=== PATIENT | male | born 1985 | race Caucasian/White ===

== ENCOUNTER 2022-03-11 16:25 | Emergency (ER) | payer SELFPAY ==
--- NOTE | 2022-03-11 16:43 | PC.NURSE ---
pt ambulated to intake desk and states he would like to go home and change his clothes. pt made aware that we will not be able to hold his spot open for him if he leaves. pt verbalized understanding and walked out ED.
== END 2022-03-11 17:17 | disposition left against medical advice (07) ==
LOC: ANHED 16:55
PROVIDERS: PCP Family Medicine
DX: Z53.21 Procedure and treatment not carried out due to patient leaving prior to being seen by health care provider (principal)
CPT/HCPCS: 99199

== ENCOUNTER 2022-03-11 17:20 | Emergency (ER) | payer BC, SELFPAY ==
--- NOTE | ~2022-03-11 | US_ITS ---
EXAMINATION: US scrotum doppler DATE: 03/11/2022 18:12 INDICATION: Right testicular and pain swelling x72 hours, recent trauma. TECHNIQUE: Grayscale and Doppler ultrasound images of the testes were obtained. COMPARISON: None. FINDINGS: The right testis measures 5.6 x 2.7 x 3.2 cm. The left testis measures 4.9 x 2.1 x 2.3 cm. Mild generalized hypervascularity in the right testicle. No solid or cystic intratesticular masses. T he right epididymis is normal with normal vascular flow and contains a 9 mm cyst. The left epididymis is normal with normal vascular flow. Approximate 16 cc volume right hydrocele. No varicoceles. IMPRESSION: 1. No sonographic evidence of testicular rupture or hematoma. 2. Sonographic findings likely reflect generalized testicular edema from recent trauma, noting that o rchitis could appear similar. 3. Small right hydrocele/hematocele. Reviewed, dictated and finalized at location K. IMPRESSION: 1. No sonographic evidence of testicular rupture or hematoma. 2. Sonographic findings likely reflect generalized testicular edema from recent trauma, noting that orchitis could appear similar. 3. Small right hydrocele/hematocele.
[2022-03-11 17:24] VITALS: BP 163/74; PULSE 84; RESP 16; TEMP 36.2; O2SAT 99
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
== END 2022-03-11 19:07 | disposition home or self-care (01) ==
LOC: ANHED 18:58
PROVIDERS: Emergency Provider Emergency Medicine; PCP Family Medicine
DX: N43.3 Hydrocele, unspecified (principal); N50.811 Right testicular pain; I10 Essential (primary) hypertension; E78.5 Hyperlipidemia, unspecified
CPT/HCPCS: 76870; 93976; 99284

== ENCOUNTER 2024-10-16 08:02 | Emergency (ER) | payer BC, SELFPAY ==
[2024-10-16 08:08] VITALS: BP 188/111; PULSE 75; RESP 16; TEMP 36.4; O2SAT 100
--- OUTSIDE RECORDS SUMMARY | 2024-10-16 08:10 | XMS_ITS | Clinical Summary ---
Author Organization [facility] Address [address] [place] [id number] Care Team Providers Care Line Palletizer Name Role Phone Stuart Palomo MD Primary Care Provider [phone]- [phone] Allergies No known active allergies Medications hydroCHLOROthiaz shiraz (HYDRODIURIL) 25 mg tablet Take 25 mg by mouth daily. 3 02/13/2017 Active losartan (COZAAR) 100 mg tablet Take 100 mg by mouth daily. 5 02/11/2017 Active NIFEdipine XL (PROCARDIA XL) 90 mg 24 hr tablet Take 90 mg by mouth daily. 5 01/29/2017 Active POTASSIUM CHLORIDE ER 20 mEq CR tablet Take 20 mEq by mouth daily. 3 02/12/2017 Active nebivolol (BYSTOLIC) 10 mg tablet Take 1 tablet (10 mg total) by mouth daily. 90 tablet 3 04/01/2018 Active Active Problems Problem Noted Date Diagnosed Date Essential hypertension, benign 02/25/2017 Chest pressure 02/25/2017 Morbid obesity with BMI of 40.0-44.9, adult 02/07 SALVATORE (obstructive sleep apnea) 02/25/2017 Medical History Medical History Date Comments Hypertension Sleep apnea Family History Relation Name Status Comments Father Alive Mother Alive Social History Tobacco Use Types Packs/Day Years Used Date Smoking Tobacco: Never Smokeless Tobacco: Never Alcohol Use Standard Drinks/Week Comments Yes 0 (1 standard drink = 0.6 oz pur e alcohol) occassionally Personal Safety Answer Date Recorded Getting School Help Needed Not on file 10/23 Sex and Gender Information Value Date Recorded Sex Assigned at Not on file Legal Sex Male 8:44 AM CDT Gender Identity Not on file Sexual Orientation Not on file Obstetrics History Last Filed Vital Signs Vital Sign Reading Time Taken Comments Blood Pressure 130/80 05/18/2018 3:15 PM CDT Pulse 80 05/18/2018 3:15 PM CDT Temperature - - Respiratory Rate - - Oxygen Saturation 97% 01/11/2018 11:27 AM CDT Inhaled Oxygen Concentration - - Weight 142.9 kg (315 lb) 05/18/2018 3:15 PM CDT Height 185.4 cm (6' 1 ) 05/18/2018 3:15 PM CDT Body Mass Index 41.56 05/18/2018 3:15 PM CDT Plan of Treatment Not on file Insurance [employer] Care Teams Line Palletizer Relationship Specialty Start Date End Date Stuart Palomo MD [facility] [place] [address] PCP - General Family Medicine 02/25/17
--- OUTSIDE RECORDS SUMMARY | 2024-10-16 08:10 | XMS_ITS | Clinical Summary ---
Author Organization [facility] Address [address] [place] [id number] Care Team Providers Care Health Plan Specialist Name Role Phone Unavailable Primary Care Provider Unavailabl e Social History Tobacco Use Types Packs/Day Years Used Date Smoking Tobacco: Never Assessed Sex and Gender Information Value Date Recorded Sex Assigned at Not on file Legal Sex Male 5:36 PM CDT Gender Identity Not on file Sexual Orientation Not on file Last Filed Vital Signs Vital Sign Reading Time Taken Comments Blood Pressure 139/79 03/11/2017 7:17 AM CDT Pulse 60 03/11/2017 7:17 AM CDT Temperature - - Respiratory Rate - - Oxygen Saturation - - Inhaled Oxygen Concentration - - Weight 151.5 kg (334 lb) 03/11/2017 7:17 AM CDT Height 185.4 cm (6' 1 ) 03/11/2017 7:17 AM CDT Body Mass Index 44.07 03/11/2017 7:17 AM CDT Plan of Treatment Health Maintenance Due Date Last Done Comments Annual Physical 1990 Hepatitis C 2005 DTaP, Tdap and Td Vaccines ( 1 - Tdap) 2006 Hepatitis B Vaccines (1 of 3 - 19+ 3-dose series) 2006 COVID-19 Vaccine (2023-2 5 season) 2024 Influenza Adult (#1) 2024 HPV Vaccines Aged Out No longer eligi ble based on patient's age to complete this topic Meningococcal B Vaccine Aged Out No l onger eligible based on patient's age to complete this topic Meningococcal Vaccine Aged Out No jemima tom eligible based on patient's age to complete this topic Pneumococcal Vaccine: Pediat rics (0 to 5 Years) and At-Risk Patients (6 to 64 Years) Aged Out No longer eligible b ased on patient's age to complete this topic RSV Immunizations Under 20 Months Aged Out No longer eligible based on patient's age to complete this topic
--- OUTSIDE RECORDS SUMMARY | 2024-10-16 08:10 | XMS_ITS | Referral Summary ---
Author Organization [facility] Address [address] [place] [id number] Care Team Providers Care [employer] Lieutenant Name Role Phone Stuart Palomo MD Primary Care Provider +1- [phone] Allergies No known active allergies Medications hydroCHLOROthiaz [...] adult 02/07 SALVATORE (obstructive sleep apnea) 02/25/2017 Social History Tobacco Use Types Packs/Day Years [...] Plan of Treatment Not on file Insurance [facility] Care Teams [employer] Lieutenant Relationship Specialty Start Date End Date Stuart Palomo MD [address] [place] [address] [place] [address] PCP - General Family Medicine 02/25/17
--- OUTSIDE RECORDS SUMMARY | 2024-10-16 08:10 | XMS_ITS | Data Portability ---
Author Organization [place] [facility] [employer], Main Office Address [address] [place] [address] Assessment No assessment recorded. Plan of Treatment Reminders Order Date Submit Date Provider Last Modified By Organization Details Last Modified Time Details Appointments None recorded. Lab HbA1c (hemoglobin A1c), blood 2023 [employer] [facility], [address], [place], [address], 4 01:38:02 CMP, serum or plasma 2023 [employer] [facility], [address], [place], [address], 4 01:37:59 lipid panel, serum 2023 [employer] [facility], [address], [place], [address], 4 01:37:56 CBC w/ auto diff 2023 [employer] [facility], [address], [place], [address], 4 01:38:01 TSH + free T4, serum 2023 [employer] [facility], [address], [place], [address], 4 01:37:58 CK (creatine kinase), total, serum 2023 [employer] [facility], [address], [place], [address], 4 01:38:00 lipid panel, serum 2022 023 [email or web address] 2 [employer] [facility], [address], [place], [address], 3 16:41:37 CMP, serum or plasma 2022 023 [email or web address] 2 [employer] [facility], [address], [place], [address], 3 16:41:37 Referral None recorded. Procedures None recorded. Surgeries None recorded. Imaging None recorded. Medication Orders hydrochloro thiazide 25 mg tablet 2023 024 [facility]/Pharmacy #[id number], [address] [place], [address], 4 10:24:39 losartan 100 mg tablet 2023 024 [facility]/Pharmacy #3259, [address] [place], [address], 4 10:24:40 nifedipine ER 90 mg tablet,exte nded release 2023 024 [facility] [address] [place], [address], 4 10:24:41 chlorthalid one 25 mg tablet 2022 023 [email or web address]/Pharmacy #3259, [address] [place], [address], 4 10:03:05 Patient TargetsNo targets recorded. Patient Instructions Encounter Date Encounter Id Patient Instructions Last Modified By Organization Details Last Modified Time 06/29/2024 [id number] Advised avoiding spicy tomato-based foods , carbonated beverages ,drink water . If no better we can refer to GI. ...recheck BP here free in 7 days [email or web address] Not available 07/17/2024 09:24:45 Reason for Referral None Reported. Results Created Date Observation Date Name Description Value Unit Range Abnormal Flag Note LastModifiedBy Organization Detail LastModifiedTime 03/04/20 22 03/04/2022 LIPID PANEL cholesterol 178 mg/dL 140-19 9 [facility] EN[facility] NSUS RECOM MENDA TION FOR LINDSEY STERO L: ADULT CHILD LOW RISK: <200 <170 BORDE RLINE : <200- 239 ----- HIGH RISK: >240 >200 Not Available [facility] (Lab) [address] [place], [address], 03/04/2022 13:06:17 03/04/20 22 03/04/2022 LIPID PANEL triglyceride s 181 mg/dL 0-150 high NIH ENEDINA NSUS REPOR T RECOM MENDA TION FOR TRIGL YCERI AFSHIN: ADULT CHILD LOW RISK: <150 ----- BODER LINE: 150-1 99 ----- HIGH RISK: >200 ----- Not Available [facility] (Lab) [address] [place], [address], 03/04/2022 13:06:17 03/04/20 22 03/04/2022 LIPID PANEL HDL cholesterol 52 mg/dL 40- Not Available [facility] (Lab) [address] [place], [address], 03/04/2022 13:06:17 03/04/20 22 03/04/2022 LIPID PANEL LDL cholesterol, calculated 90 mg/dL 0-130 [facility] ENEDINA NSUS REPOR T RECOM MENDA TIONS FOR LDL: ADULT CHILD LOW RISK <130 <110 (OPTI MAL LDL) <100 ----- BORDE RLINE : 130-1 59 ----- HIGH RISK: >160 >130 A TRIGL YCERI DE RESUL T >400 INVAL IDATE S THE CALCU LATIO N FOR LDL FRACT IONAT ION - THE LDL RESUL T WILL NOT BE REPOR GABO. Not Available [facility] (Lab) [address] [facility], [address], 03/04/2022 13:06:17 03/04/20 22 03/04/2022 COMPR EHENS PAGE METAB OLIC PANEL glucose 89 mg/dL 70-99 Not Available [facility] (Lab) [address] [place], [address], 03/04/2022 13:05:16 03/04/20 22 03/04/2022 COMPR EHENS PAGE METAB OLIC PANEL sodium 137 mmol/ L 137-14 5 Not Available [facility] (Lab) [address] [place], [address], 03/04/2022 13:05:16 03/04/20 22 03/04/2022 COMPR EHENS PAGE METAB OLIC PANEL potassium 3.9 mmol/ L 3.5-5. 1 Not Available [facility] (Lab) [address] [place], [address], 03/04/2022 13:05:16 03/04/20 22 03/04/2022 COMPR EHENS PAGE METAB OLIC PANEL chloride 100 mmol/ L 98-107 Not Available [facility] (Lab) [address] [place], [address], 03/04/2022 13:05:16 03/04/20 22 03/04/2022 COMPR EHENS PAGE METAB OLIC PANEL carbon dioxide 28 mmol/ L 22-30 Not Available [facility] (Lab) [address] [place], [address], 03/04/2022 13:05:16 03/04/20 22 03/04/2022 COMPR EHENS PAGE METAB OLIC PANEL anion gap 12.9 mmol/ L 14-22 low Not Available [facility] (Lab) [address] [place], [address], 03/04/2022 13:05:16 03/04/20 22 03/04/2022 COMPR EHENS PAGE METAB OLIC PANEL BUN 14 mg/dL 8-19 Not Available [facility] (Lab) [address] [place], [address], 03/04/2022 13:05:16 03/04/20 22 03/04/2022 COMPR EHENS PAGE METAB OLIC PANEL creatinine 0.75 mg/dL 0.66-1 .25 Not Available [facility] (Lab) [address] [place], [address], 03/04/2022 13:05:16 03/04/20 22 03/04/2022 COMPR EHENS PAGE METAB OLIC PANEL GFR >60 Refer ence Range : Sawyer ge GFR Healt hy Adult : >60 mL/mi n/1.7 3 m2 Chron ic Kidne y Disea se: 15-60 mL/mi n/1.7 3 m2 Kidne y Failu re: <15/m L/min /1.73 m2 www.n iddk. nih.g ov The MDRD study equat ion has not been valid ated in child zac <18 years of age; pregn ant women ; the elder ly >85 years of age; or in some racia l or ethni c subgr oups, such as nm nics. Outsi de the valid ated reed eters , estim ated GFR is less accur ate, requi ring clini luciana judgm ent on a case- by-ca se basis . Clini luciana inter preta tion for other races and ages must be made by the clini frandy. The MDRD study equat ion has not been valid ated for the evalu ation of serum creat inine relat ed to nutri karen l statu s or medic ation usage . For perso ns <18 years of age, a pedia tric GFR calcu lator is avail able on the F websi te: https ://alejandro w.rosy leavitt.o rg/pr ofess ional s/kdo qi/gf r_cal culat or Not Available [facility] (Lab) [address] [place], [address], 03/04/2022 13:05:16 03/04/20 22 03/04/2022 COMPR EHENS PAGE METAB OLIC PANEL alkaline phosphatase 73 U/L 38-126 Not Available [facility] (Lab) [address], [address], 03/04/2022 13:05:16 03/04/20 22 03/04/2022 COMPR EHENS PAGE METAB OLIC PANEL alanine aminotransfe rase 61 U/L 0-50 high Not Available [facility] (Lab) [address] [place], [address], 03/04/2022 13:05:16 03/04/20 22 03/04/2022 COMPR EHENS PAGE METAB OLIC PANEL aspartate aminotransfe rase 40 U/L 15-46 Not Available [facility] (Lab) [address] [place], [address], 03/04/2022 13:05:16 03/04/20 22 03/04/2022 COMPR EHENS PAGE METAB OLIC PANEL bilirubin, total 0.40 mg/dL 0.20-1 .30 Not Available [facility] (Lab) [address] [place], [address], 03/04/2022 13:05:16 03/04/20 22 03/04/2022 COMPR EHENS PAGE METAB OLIC PANEL calcium 9.7 mg/dL 8.4-10 .2 Not Available [facility] (Lab) [address] [place], [address], 03/04/2022 13:05:16 03/04/20 22 03/04/2022 COMPR EHENS PAGE METAB OLIC PANEL total protein 7.3 g/dL 6.3-8. 2 Not Available [facility] (Lab) [address] [place], [address], 03/04/2022 13:05:16 03/04/20 22 03/04/2022 COMPR EHENS PAGE METAB OLIC PANEL albumin 4.5 g/dL 3.4-5. 0 Not Available [facility] (Lab) [address] [place], [address], 03/04/2022 13:05:16 03/04/20 22 03/04/2022 COMPR EHENS PAGE METAB OLIC PANEL globulin 2.8 g/dL 2.6-4. 2 Not Available [facility] (Lab) [address] [place], [address], 03/04/2022 13:05:16 03/04/20 22 03/04/2022 COMPR EHENS PAGE METAB OLIC PANEL A/G ratio 1.6 ratio 1.0-2. 0 Not Available [facility] (Lab) [address] [place], [address], 03/04/2022 13:05:16 06/29/20 24 06/30/2024 LIPID PANEL , STAND EMILIA cholesterol, total 180 mg/dL <200 normal Not Available [employer] [address] [address] [place], [address], 06/30/2024 01:37:53 06/29/20 24 06/30/2024 LIPID PANEL , STAND EMILIA HDL cholesterol 52 mg/dL > or = 40 normal Not Available [employer] [address] [address] [place], [address], 06/30/2024 01:37:53 06/29/20 24 06/30/2024 LIPID PANEL , STAND EMILIA triglyceride s 141 mg/dL <150 normal Not Available [employer] [address] [address] [place], [address], 06/30/2024 01:37:53 06/29/20 24 06/30/2024 LIPID PANEL , STAND EMILIA LDL-choleste rol 104 mg/dL _(luciana c) high Refer ence range : <100 Anastacio able range <100 mg/dL for prima ry preve ntion ; <70 mg/dL for patie nts with CHD or diabe tic patie nts with > or = 2 CHD risk facto rs. LDL-C is now calcu lated using the [facility] kins salbador yañez n, which is a valid ated novel metho d provi edgardo barb r accur acy than the Fried clarice equat ion in the estim ation of LDL-C . Amber valverde SS et al. AUBRIE. 2013; 310(1 9): 2061- 206 (http ://ed ucati on.Qu estDi DermaMedicss. com/f aq/FA Q164) Not Available [employer] [address] [place], [address], 06/30/2024 01:37:53 06/29/20 24 06/30/2024 LIPID PANEL , STAND EMILIA chol/HDLC ratio 3.5 (calc ) <5.0 normal Not Available [employer] [address] [place], [address], 06/30/2024 01:37:53 06/29/20 24 06/30/2024 LIPID PANEL , STAND EMILIA non HDL cholesterol 128 mg/dL _(luciana c) <130 normal For patie nts with diabe yahaira plus 1 major ASCVD risk facto r, treat ing to a non-H DL-C goal of <100 mg/dL (LDL- C of <70 mg/dL ) is consi ryand a thera christine c optio n. Not Available [facility] [address] [address] [facility] [place], [address], 06/30/2024 01:37:53 06/29/20 24 06/30/2024 TSH+F REE T4 TSH 0.79 mIU/L 0.40-4 .50 normal Not Available [employer] [address] [address] [place], [address], 06/30/2024 01:37:57 06/29/20 24 06/30/2024 TSH+F REE T4 T4, free 1.2 NG/dL 0.8-1. 8 normal Not Available [address], [address], 06/30/2024 01:37:57 06/29/20 24 06/30/2024 COMPR EHENS PAGE METAB OLIC PANEL glucose 84 mg/dL 65-99 normal Fasti ng refer ence inter navid Not Available [address], [address], 06/30/2024 01:37:58 06/29/20 24 06/30/2024 COMPR EHENS PAGE METAB OLIC PANEL urea nitrogen (BUN) 13 mg/dL 7-25 normal Not Available [address], [address], 06/30/2024 01:37:58 06/29/20 24 06/30/2024 COMPR EHENS PAGE METAB OLIC PANEL creatinine 0.74 mg/dL 0.60-1 .26 normal Not Available [address], [address], 06/30/2024 01:37:58 06/29/20 24 06/30/2024 COMPR EHENS PAGE METAB OLIC PANEL eGFR 120 mL/mi n/1.7 3m2 > or = 60 normal Not Available [address], [address], 06/30/2024 01:37:58 06/29/20 24 06/30/2024 COMPR EHENS PAGE METAB OLIC PANEL BUN/creatini ne ratio SEE NOTE: (calc ) 6-22 Not Repor gabo: BUN and Creat inine are withi n refer ence range . Not Available [address], [address], 06/30/2024 01:37:58 06/29/20 24 06/30/2024 COMPR EHENS PAGE METAB OLIC PANEL sodium 137 mmol/ L 135-14 6 normal Not Available [address], [address], 06/30/2024 01:37:58 06/29/20 24 06/30/2024 COMPR EHENS PAGE METAB OLIC PANEL potassium 4.1 mmol/ L 3.5-5. 3 normal Not Available [address], [address], 06/30/2024 01:37:58 06/29/20 24 06/30/2024 COMPR EHENS PAGE METAB OLIC PANEL chloride 100 mmol/ L 98-110 normal Not Available [address], [address], 06/30/2024 01:37:58 06/29/20 24 06/30/2024 COMPR EHENS PAGE METAB OLIC PANEL carbon dioxide 31 mmol/ L 20-32 normal Not Available [address], [address], 06/30/2024 01:37:58 06/29/20 24 06/30/2024 COMPR EHENS PAGE METAB OLIC PANEL calcium 9.8 mg/dL 8.6-10 .3 normal Not Available [address], [address], 06/30/2024 01:37:58 06/29/20 24 06/30/2024 COMPR EHENS PAGE METAB OLIC PANEL protein, total 7.7 g/dL 6.1-8. 1 normal Not Available [address], [address], 06/30/2024 01:37:58 06/29/20 24 06/30/2024 COMPR EHENS PAGE METAB OLIC PANEL albumin 4.8 g/dL 3.6-5. 1 normal Not Available [address], [address], 06/30/2024 01:37:58 06/29/20 24 06/30/2024 COMPR EHENS PAGE METAB OLIC PANEL globulin 2.9 g/dL_ (calc ) 1.9-3. 7 normal Not Available [address], [address], 06/30/2024 01:37:58 06/29/20 24 06/30/2024 COMPR EHENS PAGE METAB OLIC PANEL albumin/glob ulin ratio 1.7 (calc ) 1.0-2. 5 normal Not Available [address], [address], 06/30/2024 01:37:58 06/29/20 24 06/30/2024 COMPR EHENS PAGE METAB OLIC PANEL bilirubin, total 0.8 mg/dL 0.2-1. 2 normal Not Available [address], [address], 06/30/2024 01:37:58 06/29/20 24 06/30/2024 COMPR EHENS PAGE METAB OLIC PANEL alkaline phosphatase 86 U/L 36-130 normal Not Available [address], [address], 06/30/2024 01:37:58 06/29/20 24 06/30/2024 COMPR EHENS PAGE METAB OLIC PANEL AST 24 U/L 10-40 normal Not Available [address], [address], 06/30/2024 01:37:58 06/29/20 24 06/30/2024 COMPR EHENS PAGE METAB OLIC PANEL ALT 32 U/L 9-46 normal Not Available [address], [address], 06/30/2024 01:37:58 06/29/20 24 06/30/2024 CREAT INE KINAS E, TOTAL creatine kinase, total 350 U/L 44-196 high Not Available [address], [address], 06/30/2024 01:38:00 06/29/20 24 06/30/2024 CBC (INCL UDES DIFF/ PLT) white blood cell count 9.0 thous and/u L 3.8-10 .8 normal Not Available [address], [address], 06/30/2024 01:38:01 06/29/20 24 06/30/2024 CBC (INCL UDES DIFF/ PLT) red blood cell count 5.41 soo on/uL 4.20-5 .80 normal Not Available [address], [address], 06/30/2024 01:38:01 06/29/20 24 06/30/2024 CBC (INCL UDES DIFF/ PLT) hemoglobin 15.8 g/dL 13.2-1 7.1 normal Not Available [address], [address], 06/30/2024 01:38:01 06/29/20 24 06/30/2024 CBC (INCL UDES DIFF/ PLT) hematocrit 48.0 % 38.5-5 0.0 normal Not Available [address], [address], 06/30/2024 01:38:01 06/29/20 24 06/30/2024 CBC (INCL UDES DIFF/ PLT) MCV 88.7 fL 80.0-1 00.0 normal Not Available [address], [address], 06/30/2024 01:38:01 06/29/20 24 06/30/2024 CBC (INCL UDES DIFF/ PLT) MCH 29.2 pg 27.0-3 3.0 normal Not Available [address], [address], 06/30/2024 01:38:01 06/29/20 24 06/30/2024 CBC (INCL UDES DIFF/ PLT) MCHC 32.9 g/dL 32.0-3 6.0 normal For adult s, a sligh t decre ase in the calcu lated MCHC value (in the range of 30 to 32 g/dL) is most likel y not clini turner signi ficdebby t; nataliiaev er, it shoul d be inter prete d with cauti on in corre latio n with other red cell reed eters and the patie nt's clini luciana condi tion. Not Available [address], [address], 06/30/2024 01:38:01 06/29/2006/30/2024 CBC (INCL UDES DIFF/ PLT) RDW 12.6 % 11.0-1 5.0 normal Not Available [address], [address], 06/30/2024 01:38:01 06/29/20 24 06/30/2024 CBC (INCL UDES DIFF/ PLT) platelet count 282 thous and/u L 140-40 0 normal Not Available [address], [address], 06/30/2024 01:38:01 06/29/20 24 06/30/2024 CBC (INCL UDES DIFF/ PLT) MPV 9.8 fL 7.5-12 .5 normal Not Available [address], [address], 06/30/2024 01:38:01 06/29/20 24 06/30/2024 CBC (INCL UDES DIFF/ PLT) absolute neutrophils 5157 cells /uL 1500-7 800 normal Not Available [address], [address], 06/30/2024 01:38:01 06/29/20 24 06/30/2024 CBC (INCL UDES DIFF/ PLT) absolute lymphocytes 2934 cells /uL 850-39 00 normal Not Available [address], [address], 06/30/2024 01:38:01 06/29/20 24 06/30/2024 CBC (INCL UDES DIFF/ PLT) absolute monocytes 684 cells /uL 200-95 0 normal Not Available [address], [address], 06/30/2024 01:38:01 06/29/20 24 06/30/2024 CBC (INCL UDES DIFF/ PLT) absolute eosinophils 162 cells /uL 15-500 normal Not Available [address], [address], 06/30/2024 01:38:01 06/29/20 24 06/30/2024 CBC (INCL UDES DIFF/ PLT) absolute basophils 63 cells /uL 0-200 normal Not Available [address], [address], 06/30/2024 01:38:01 06/29/20 24 06/30/2024 CBC (INCL UDES DIFF/ PLT) neutrophils 57.3 % normal Not Available [address], [address], 06/30/2024 01:38:01 06/29/20 24 06/30/2024 CBC (INCL UDES DIFF/ PLT) lymphocytes 32.6 % normal Not Available [address], [address], 06/30/2024 01:38:01 06/29/20 24 06/30/2024 CBC (INCL UDES DIFF/ PLT) monocytes 7.6 % normal Not Available [address], [address], 06/30/2024 01:38:01 06/29/20 24 06/30/2024 CBC (INCL UDES DIFF/ PLT) eosinophils 1.8 % normal Not Available [facility] [address] [place], [address], 06/30/2024 01:38:01 06/29/20 24 06/30/2024 CBC (INCL UDES DIFF/ PLT) basophils 0.7 % normal Not Available [facility] [address] [address], [place], [address], 06/30/2024 01:38:01 06/29/20 24 06/30/2024 HEMOG LOBIN A1C hemoglobin A1C 5.4 %_of_ total _HGB <5.7 normal For the purpo se of screjamel goinsg for the prese nce of diabe yahaira: <5.7% Consi stent with the absen ce of diabe yahaira 5.7-6 .4% Consi stent with incre ased risk for diabe yahaira (pred iabet es) > or =6.5% Consi stent with diabe yahaira This assay resul t is consi stent with a decre ased risk of diabe yahaira. Curre ntly, no conse nsus exist s navin reynoso use of hemog lobin A1c for diagn osis of diabe yahaira in child zac. Accor ding to Ameri can Diabe yahaira Assoc iatio n (ADA) guide lines , hemog lobin A1c <7.0% repre sents optim al contr ol in non-p regna nt diabe tic patie nts. Diffe rent metri cs may apply to speci fic patie nt popul ation s. Stand ards of Medic al Care in Diabe yahaira(A DA). Not Available [facility] [address] [address], [place], [address], 06/30/2024 01:38:02 03/11/20 22 03/11/2022 imagi ng/di agnos tic resul t No observ ation record ed. [id number] [address] [address], [place], [address], 10/07/2022 01:02:24 Result Notes None recorded. Problems Name Problem SNOMED Code Status Onset Date Resolution Date Notes Provider Name and Address Organization Details Recorded Time Dizziness 689811978 Active Not Available [facility] 3 00:53:23 Obesity 765946618 Active Not Available [facility] 3 00:53:23 Essential hypertension 79612864 Active Not Available [facility] 3 00:53:23 Hypersomnia 18595270 Active Not Available [facility] 3 00:53:23 Obstructive sleep apnea syndrome 68100575 Active Not Available [facility] 3 00:53:24 Testicular mass 35874193 Active Not Available [facility] 3 00:53:24 Hyperlipidemi a 87644719 Active 2022 Stuart Palomo MD [address] [facility], [address] [address], [place], [address] , [facility] [employer] 3 19:35:15 Gout 91676776 Active 2022 Stuart Palomo MD [address] [facility], [address], [place], [address] , [facility] [employer] 3 21:24:48 Problem Notes None recorded. Procedures Surgical History None recorded. Imaging Results Imaging Date Name Status LastModified by Organiz ation Details LastModified Time 03/11/2022 imaging/gustabo gnostic result completed [id number] [address] [place] [address] [address], [place], [address], 10/07/2022 01:02:24 Procedure Notes None recorded. Medical Equipment None Reported. Allergies No known drug allergies Medications Name Sig Start Date Stop Date Status Note LastModified by Organization Details LastModified Time neomycin-po lymyxin-hyd rocort 3.5 mg/mL-10,00 0 unit/mL-1 % ear solution INSTILL 4 GTS IN AFFECTED EAR BID FOR 20 DAYS 10/15 completed Not Available Not Available Not Available atorvastati n 20 mg tablet TAKE 1 TABLET BY MOUTH EVERY DAY active Not Available Not Available No t Available azithromyci n 250 mg tablet FPD 03/30 completed Not Available Not Available Not Available nifedipine ER 90 mg tablet,exte nded release Take 1 tablet every day by oral route for 90 days. 2023 active Not Available Not Available Not Avai lable chlorthalid one 25 mg tablet TAKE 1 TABLET BY MOUTH EVERY DAY DIRECTED 06/29 completed Not Available Not Available Not Available oxycodone-a cetaminophe n 5 mg-325 mg tablet TK 1 T PO TID PRN P 08/31 completed Not Available Not Available Not Available doxycycline monohydrate 50 mg capsule active Not Available Not Available Not Available amoxicillin 875 mg tablet 08/31 completed Not Available Not Available Not Available prednisolon e acetate 1 % eye drops,suspe nsion INT 1 DROP QID OU 08/31 completed Not Available Not Available Not Available nifedipine ER 60 mg tablet,exte nded release 24 hr Take 1 tablet every day by oral route. 10/06 completed Not Available Not Available Not Available nifedipine ER 90 mg tablet,exte nded release 24 hr TAKE 1 TABLET BY MOUTH DAILY 06/29 completed Not Available Not Available Not Available hydrochloro thiazide 25 mg tablet Take 1 tablet every day by oral route. active Not Available Not Available No t Available nifedipine ER 60 mg tablet,exte nded release TAKE 1 TABLET BY MOUTH EVERY DAY 08/31 completed Not Available Not Available Not Available losartan 100 mg tablet TAKE 1 TABLET BY MOUTH EVERY DAY 2023 active Not Available Not Available Not Avai lable diazepam 5 mg tablet BRING TO [facility] ON SURGERYDA Y 08/31 completed Not Available Not Available Not Available amoxicillin 875 mg-potassiu m clavulanate 125 mg tablet 07/25 completed Not Available Not Available Not Available Klor-Con M20 mEq tablet,exte nded release TAKE 1 TABLET BY MOUTH EVERY DAY active Not Available Not Available No t Available Boostrix Tdap 2.5 Lf unit-8 mcg-5 Lf/0.5 mL intramuscul ar syringe ADM 0.5ML IM UTD 08/31 completed Not Available Not Available Not Available potassium chloride 25meq 1 po daily 07/25 completed Not Available Not Available Not Available Bystolic 5 mg tablet 07/25 completed Not Available Not Available Not Available nebivolol 10 mg tablet TAKE 1 TABLET BY MOUTH EVERY DAY 03/04 completed Not Available Not Available Not Available benzoyl peroxide 5.3 % topical foam active Not Available Not Available Not Available gatifloxaci n 0.5 % eye drops INT 1 DROP QID OU 08/31 completed Not Available Not Available Not Available Edarbyclor 40 mg-25 mg tablet active Not Available Not Available Not Available Fluvirin 45 mcg (15 mcg x 3)/0.5 mL intramuscul ar suspension ADM 0.5ML IM UTD 08/31 completed Not Available Not Available Not Available Fluzone Quad (PF) 60 mcg(15 mcgx4)/0.5 mL intramuscul ar syringe active Not Available Not Available N ot Available Afluria Qd (36 mos up)(PF)60 mcg (15 mcg x4)/0.5 mL IM syringe ADM 0.5ML IM UTD active Not Available Not Available No t Available ID NOW COVID-19 Test Kit TEST DIRECTED TODAY 03/04 completed Not Available Not Available Not Available Vitals Date Recorded Body mass index (BMI) Body height Oxygen saturation Oxygen saturation in Arterial blood by Pulse oximetry Heart rate Body temperature Body weight Systolic blood pressure Diastolic blood pressure Provider Name and Address Organization Details Last Updated DateTime 1 37.7 kg/m2 185.42 cm 99 % 99 % 68 /min 97 [degF] 454687. 42 g 150 mm[Hg] 100 mm[Hg] Not Available [facility] 3 00:49:25 Date Recorded Body mass index (BMI) Body height Oxygen saturation Oxygen saturation in Arterial blood by Pulse oximetry Heart rate Body temperature Body weight Systolic blood pressure Diastolic blood pressure Provider Name and Address Organization Details Last Updated DateTime 2 41.4 kg/m2 185.42 cm 98 % 98 % 77 /min 97.3 [degF] 088418 g 160 mm[Hg] 100 mm[Hg] Not Available [facility] 3 00:49:25 Date Recorded Body weight Body mass index (BMI) Body height Body temperature Heart rate Oxygen saturation Oxygen saturation in Arterial blood by Pulse oximetry Systolic blood pressure Diastolic blood pressure Provider Name and Address Organization Details Last Updated DateTime 3 778873. 63 g 40.9 kg/m2 185.42 cm 98.2 [degF] 62 /min 98 % 98 % 128 mm[Hg] 76 mm[Hg] Nara pretty CMA [place] - [facility] 3 10:21:32 Date Recorded Body height Body mass index (BMI) Body weight Body temperature Heart rate Oxygen saturation Oxygen saturation in Arterial blood by Pulse oximetry Systolic blood pressure Diastolic blood pressure Provider Name and Address Organization Details Last Updated DateTime 4 185.42 cm 45.1 kg/m2 416536. 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 Mental Status None recorded. Family History Relationship Description Onset Age of this Age Resolved Age Notes LastModified by Organization Details LastModified Time Father Hypertensive disorder [id number] Not available 10/07/2022 00:46:54 Mother Diabetes mellitus [id number] Not available 10/07/2022 00:46:54 Medical History No medical history recorded. Past Encounters Encounter ID Performer Location Encounter Start Date Encounter Closed Date Diagnosis/Indication Diagnosis SNOMED-CT Code Diagnosis ICD10 Code Diagnosis Note [id number] [facility] [address] [place] [address] 10/08/2020 00:00:00 10/08/2020 09:35:14 [id number] [facility] [place] [address] [place] [address] 03/04/2022 00:00:00 03/04/2022 09:57:49 [id number] Stuart Palomo MD [facility] [place] [address] [place] [address] 04/20/2023 09:57:37 04/20/2023 10:44:28 Adult health examination 900842402 Z00.00 Essential hypertension 96855309 I10 BP 138/78 continue same meds. Will stop HCTZ and change to chlorthali done as the HCTZ may cause gout flare uos. Hyperlipidemia 46687868 E78.5 Gout 09569349 M10.9 Will d/c HTCZ as this may lead to gout. Pt reports it is getting better not as painful taking ibuprofen prn which helps [id number] ONELIA Howard [facility] [place] [address] [facility] [place] [address] 06/29/2024 09:53:21 06/29/2024 10:29:29 Essential hypertension 93623190 I10 Hyperlipidemia 62892299 E78.5 Obesity 529402484 E66.9 Obstructiv e sleep apnea syndrome 92666600 G47.33 Health Concerns Section Related Observation LastModified by Organization Detai ls LastModified Time None Recorded Concern Status LastModified by Organization Details LastModified Time None Recorded Advance Directives Directive None Recorded Payers Encounter Date Sequence Insurance Name Policy Number Policy Talbot Covered Member ID Talbot Member ID Guarantor Name 04/20/2023 1 [employer] (EPO) [id number] Anastacio Davis [id number] Anastacio Davis 06/29/2024 1 [place] [id number] Anastacio Davis [id number] Anastacio Davis Notes Date Note Type Note Provider Name and Address Organization Details Recorded Time 04/20/2023 text/html Here today for annual physical. Has switched jobs. Is working remotely. His BP is good. Working on diet. Doing well. BP away from here are running 140s/80s. Usually 128-135/70-80s Is needing BW.Has a gout flare up is on HCTZ. It is getting better but has a swollen red right great toe. Stuart Palomo MD [address], [place], [address], [facility] 04/20/2023 21:31:05 06/29/2024 text/html intermittent abd pain , no constipation , diarrhea , unrelated to food , for 1 month . mid abdomen ONELIA Howard [address], [place], [address], [facility] 07/17/2024 09:25:46
--- NOTE | 2024-10-16 08:26 | ED_ITS ---
HPI - Abdominal Pain General Chief Complaint: Abdominal Pain Stated Complaint: abd pain Time Seen by Provider: 10/16/24 08:20 History of Present Illness HPI narrative: Pt presents with intermittent abdominal for two months. Pain is in RUQ and lasts 2 seconds and resolves on own. Pt has no pain now. Related Data Allergies Allergy/AdvReac Type Severity Reaction Status Date / Time No Known Allergies Allergy Verified 10/16/24 08:18 Review of Systems 2 Review of Systems: All systems reviewed & are unremarkable except as noted in HPI and below PMFSH Past Medical History Medical History (Updated 10/16/24 @ 09:12 by Bud Bain III, DO) History of hyperlipidemia History of hypertension Social History Social History (Updated 03/11/22 @ 18:39 by Marilee Randall PA-C) Smoking status: Never smoker Exam 2 Const: General: healthy appearing and no acute distress Nutritional Appearance: well nourished Orientation/consciousness: patient oriented x3 Limitations: no limitations Chest: Chest palpation & inspection: normal inspection of the chest Resp: Effort & Inspection: normal respiratory effort Auscultation: clear to auscultation bilaterally Cardio: Rate: regular rate Rhythm: regular rhythm GI: GI Palp: Yes Soft to palpation and No Tenderness to palpation present (GI) Auscultation: normal bowel sounds Back/Spine/Pelvis: Back: no CVA tenderness Skin: General skin exam: normal color Rashes: no rashes Wounds: no wounds Neuro: General: patient oriented x3, moves all extremities, no meningeal signs, no focal motor deficits and CN's II-XI intact bilaterally Speech: n ormal speech Extrem: General: normal to inspection and no clubbing, cyanosis or edema Psych: Mental Status: mental status grossly normal Affect: normal affect Attitude: cooperative Course Vital Signs Vital signs: Vital Signs Temperature 97.5 F L 10/16/24 08:08 Pulse Rate 75 10/16/24 08:08 Respiratory Rate 16 10/16/24 08:08 Blood Pressure 188/111 H 10/16/24 08:08 Pulse Oximetry 100 10/16/24 08:08 Oxygen Delivery Room Air 10/16/24 08:08 Temperature 97.5 F L 10/16/24 08:08 Pulse Rate 61 10/16/24 09:31 Respiratory Rate 18 10/16/24 09:31 Blood Pressure 196/112 H 10/16/24 09:31 Pulse Oximetry 99 10/16/24 09:31 Oxygen Delivery Room Air 10/16/24 08:08 MDM - Abdominal Pain MDM Narrative Medical decision making narrative: pain does not seem surgical given short duration of 2 seconds. Pt would feel better if we got some labs so will check some labs and UA to check GB and pancreas and rule out other issues. labs all neg. home on otc gas ex and/or nsaids Lab Data 10/16/24 08:21 10/16/24 08:21 Labs: Lab Results 10/16/24 Range/Units 08:21 WBC 8.5 (4.5-10.0) K/mm3 RBC 5.20 (4.6-6.20) M/mm3 Hgb 15.1 (14.0-18.0) g/dL Hct 45.6 (42.0-52.0) % MCV 87.7 (80-100) fl MCH 29.0 (26-34) pg MCHC 33.1 (32-36) g/dl RDW 12.5 (11.5-14.5) % Plt Count 289 (150-375) k/mm3 MPV 9.2 (7.4-10.4) fl Immature Gran % (Auto) 0.7 H (0-0.5) % Neut % (Auto) 61.7 (45.5-73.1) % Lymph % (Auto) 25.4 (18.3-44.2) % Cache % (Auto) 8.0 (2.6-8.5) % Eos % (Auto) 3.4 (0-4.4) % Baso % (Auto) 0.8 (0.2-1.2) % Lymph # (Auto) 2.17 (0.9-3.2) K/mm3 Cache # (Auto) 0.7 H (0.1-0.6) K/mm3 Eos # (Auto) 0.3 (0-0.3) K/mm3 Baso # (Auto) 0.1 (0.0-0.1) K/mm3 Abs Immat Gran (auto) 0.06 H (0.00-0.031) K/mm3 Absolute Neuts (auto) 5.3 (1.3-6.7) K/mm3 Absolute Nucleated RBC 0.000 (0.0-0.012) K/mm3 Nucleated RBC % 0.0 (0.0-0.2) % Sodium 139 (137-145) mmol/L Potassium 4.0 (3.4-5.0) mmol/L Chloride 105 (98-107) mmol/L Carbon Dioxide 26 (22-30) mmol/L Anion Gap 8 (4-12) mmol/L BUN 11 (9-20) mg/dL Creatinine 0.78 (0.7-1.3) mg/dL Estim Creat Clear Calc 175 ml/min Estimated GFR > 60 (59 - ) Glucose 102 (65-110) mg/dL Calcium 9.7 (8.4-10.2) mg/dL Total Bilirubin 0.7 (0.2-1.3) mg/dL AST 36 (17-59) U/L ALT 53 H (6-50) U/L Alkaline Phosphatase 85 (38-126) U/L Total Protein 8.0 (6.3-8.2) g/dL Albumin 4.8 (3.5-5.1) g/dL Lipase 106 (23-300) U/L Urine Color Yellow (Yellow) Urine Appearance Clear (Clear) Urine pH 6.5 (5.0-9.0) Ur Specific [place] 1.017 (1.001-1.035) Urine Protein Negative (Negative) mg/dL Urine Glucose (UA) Negative (Negative) mg/dL Urine Ketones Negative (Negative) mg/dL Ur Blood (Man) Negative (Negative) Urine Nitrate Negative (Negative) Urine Bilirubin Negative (Negative) Urine Urobilinogen 0.2 (<2.0) mg/dL Leukocyte Esterase Rfl Negative (Negative) SUSAN/UL Discharge Plan Discharge Clinical Impression: Abdominal pain Patient Disposition: Home, Self-Care Condition: Stable Instructions: Antibiotic Form, Abdominal Pain (ED) Additional Instructions: can try some gas ex or motrin. follow up with PC for BP check. Patient Language: Zambian Follow-up/Referrals: Dewey,Stuart Campos MD [Non-Staff] -
[2024-10-16 08:37] LABS: Add Urine Microscopic? NO; Appearance Urine Clear (Clear); Basophils Absolute Auto 0.1 K/mm3 (0.0-0.1); Basophils Percent Auto 0.8 % (0.2-1.2); Bilirubin Urine Negative (Negative); Blood Urine Negative (Negative); Color Urine Yellow (Yellow); Eosinophils Absolute Auto 0.3 K/mm3 (0-0.3); Eosinophils Percent Auto 3.4 % (0-4.4); Glucose Urine UA Negative (Negative); Hematocrit 45.6 % (42.0-52.0); Hemoglobin 15.1 g/dL (14.0-18.0); Immature Granulocyte Absolute 0.06 K/mm3 (0.00-0.031); Immature Granulocyte Percent A 0.7 % (0-0.5); Ketones Urine Negative (Negative); Leukocyte Esterase Ur Negative LEU/UL (Negative); Lymphocytes Absolute Auto 2.17 K/mm3 (0.9-3.2); Lymphocytes Percent Auto 25.4 % (18.3-44.2); Mean Corpuscular HGB Conc 33.1 g/dl (32-36); Mean Corpuscular Volume 87.7 fl (80-100); Mean Platelet Volume 9.2 fl (7.4-10.4); Monocytes Absolute Auto 0.7 K/mm3 (0.1-0.6); Neutrophils Absolute Auto 5.3 K/mm3 (1.3-6.7); Neutrophils Percent Auto 61.7 % (45.5-73.1); Nitrate Urine Negative (Negative); Platelet Count Result 289 k/mm3 (150-375); Protein Urine Negative (Negative); Red Cell Distribution Width 12.5 % (11.5-14.5); Specific Grav Ur 1.017 (1.001-1.035); Urobilinogen Urine 0.2 mg/dL (<2.0); White Blood Count 8.5 K/mm3 (4.5-10.0); pH Urine 6.5 (5.0-9.0)
[2024-10-16 08:50] LABS: Alanine Aminotransferase 53 U/L (6-50); Albumin Level 4.8 g/dL (3.5-5.1); Alkaline Phosphatase 85 U/L (38-126); Anion Gap 8 mmol/L (4-12); Aspartate Amino Transferase 36 U/L (17-59); Bilirubin,Total 0.7 mg/dL (0.2-1.3); Blood Urea Nitrogen 11 mg/dL (9-20); Calcium 9.7 mg/dL (8.4-10.2); Carbon Dioxide 26 mmol/L (22-30); Chloride 105 mmol/L (98-107); Estimated CRCL calculation 175 ml/min; Estimated Glomerular Filt Rate > 60; Glucose 102 mg/dL (65-110); Lipase 106 U/L (23-300); Sodium 139 mmol/L (137-145)
[2024-10-16 09:01] VITALS: BP 194/108; O2SAT 99
--- OUTSIDE RECORDS SUMMARY | 2024-10-16 09:18 | XMS_ITS | Clinical Summary ---
Author Organization [facility] Address [address] [place] [id number] Care Team Providers Care Furniture Refinisher Name Role Phone Unavailable Primary Care Provider [...]
--- OUTSIDE RECORDS SUMMARY | 2024-10-16 09:18 | XMS_ITS | Clinical Summary ---
Author Organization [facility] Address [address] [place] [address] Care Team Providers Care Estimator Jewelry Name Role Phone Stuart Palomo MD Primary Care Provider [phone]- [phone] Allergies No known active allergies Medications hydroCHLOROthiaz [...] Plan of Treatment Not on file Insurance [employer] [place] Care Teams Estimator Jewelry Relationship Specialty Start Date End Date Stuart Palomo MD [facility] [place] [address] PCP - General Family Medicine 02/25/17
--- OUTSIDE RECORDS SUMMARY | 2024-10-16 09:18 | XMS_ITS | Referral Summary ---
Author Organization [facility] Address [address] [place] [address] Care Team Providers Care Acupuncturist Name Role Phone Stuart Palomo MD Primary Care Provider [phone]- [phone] Allergies No known active allergies Medications hydroCHLOROthiaz [...] Plan of Treatment Not on file Insurance [employer] Care Teams Acupuncturist Relationship Specialty Start Date End Date Stuart Palomo MD [address] [place] [address] [place] [address] PCP - General Family Medicine 02/25/17
[2024-10-16 09:31] VITALS: BP 196/112; PULSE 61; RESP 18; O2SAT 99
== END 2024-10-16 09:59 | disposition home or self-care (01) ==
PROVIDERS: Emergency Provider Emergency Medicine; PCP Physician Assistant
DX: R10.11 Right upper quadrant pain (principal); I10 Essential (primary) hypertension; E78.5 Hyperlipidemia, unspecified
CPT/HCPCS: 36415; 80053; 81003; 83690; 85025; 99283